=== PATIENT | male | born 2000 | race Caucasian/White ===

== ENCOUNTER 2020-01-25 06:15 | Day surgery (SDC) | payer MEDICAID ==
[2020-01-17 16:58] LABS: BASOPHILS # (AUTO) 0.1 X10'3 (0-0.2); BASOPHILS % (AUTO) 0.8 % (0-1); EOSINOPHILS % (AUTO) 0.5 % (0-6); LYMPHOCYTES # (AUTO) 1.6 X10'3 (1.1-4.8); LYMPHOCYTES % (AUTO) 17.3 % (21-51); MEAN CORPUSCULAR HEMOGLOBIN 31.5 PG (27.0-31.0); MEAN CORPUSCULAR HGB CONC 34.5 g/dL (33.0-36.5); MEAN CORPUSCULAR VOLUME 91.3 FL (78-98); MEAN PLATELET VOLUME 7.7 FL (7.4-10.4); MONOCYTES # (AUTO) 0.6 X10'3 (0-0.9); MONOCYTES % (AUTO) 6.9 % (2-12); NEUTROPHILS # (AUTO) 6.7 X10'3 (1.8-7.7); NEUTROPHILS % (AUTO) 74.5 % (42-75); PRE OP HEMATOCRIT 48.6 % (42.0-52.0); PRE OP HEMOGLOBIN 16.8 g/dL (14.0-17.9); PRE OP PLATELET COUNT 215 X10'3 (140-440); RED BLOOD COUNT 5.33 X10'6 (4.70-6.10); RED CELL DISTRIBUTION WIDTH 13.7 % (11.5-14.5)
[~2020-01-25] VITALS: Ht 188 cm; Wt 71.0 kg
[2020-01-25] VITALS (7 sets, daily range): BP systolic 97–114; BP diastolic 64–81
[~2020-01-25 06:15] MED LIST: NO HOME MEDS; ceFAZolin 1GM/D5W- ADD-VANTAGE 50 ML IV ONE; famotidine 20mg tablet PO ONE; ringers solution, lacted 1,000 ML IV SCH
[2020-01-25] MEDS ORDERED: BUPIVAcaine/PF 2.5mg/ml (0.25%) 10ml vial ONE (06:38)
[2020-01-25] MEDS ORDERED: LIDOcaine 0.5% (5mg/ml) 50ml vial ONE (07:21)
[2020-01-25] MEDS ORDERED: fentaNYL/PF 50MCG/1 ML 2ML syringe ONE (08:01)
[2020-01-25] MEDS ORDERED: MIDAZolam 5mg/5ml vial ONE (08:02)
[2020-01-25] MEDS ORDERED: ketamine 50mg/5ml syringe ONE (08:24)
--- NOTE | 2020-01-25 08:40 | NUR ---
Received from OR via , accompanied by Anesthesiologist GARCES and report given by Anesthesiolgist. AWAKENS TO VOICE. VITALS STABLE. DRESSING DI. MESHA PAIN. FINGERS COOL AND PINK.
[2020-01-25] MEDS ORDERED: HYDROcodone/acetaminophen 10/325mg tab PO ONE (09:40)
--- NOTE | 2020-01-25 09:50 | NUR ---
AWAKE AND ORIENTED. VITALS STABLE. DRESSING DI. STATES PAIN IMPROVING. HOME WITH HIS MOM AT THIS TIME.
== END 2020-01-25 09:50 | disposition home or self-care (01) ==
LOC: PAS 06:15
PROVIDERS: ATTEND Orthopaedic Surgery Hand Surgery
DX: M67.432 Ganglion, left wrist (principal); F41.9 Anxiety disorder, unspecified; C95.91 Leukemia, unspecified, in remission; Z88.0 Allergy status to penicillin; Z87.891 Personal history of nicotine dependence; Z98.890 Other specified postprocedural states; Z11.59 Encounter for screening for other viral diseases; Z79.899 Other long term (current) drug therapy
CPT/HCPCS: 25111; 36415; 82948; 85025; J0690; J2001; J2250; J3010; J3490; J7120; U0003; A4215; A4618; A7000